=== PATIENT | female | born 1985 | race African-American/Black ===

== ENCOUNTER 2018-09-30 13:09 | Emergency (ER) | payer MEDICAID ==
[~2018-09-30] VITALS: Ht 167.6 cm; Wt 147.9 kg
--- NOTE | 2018-09-30 13:23 | NUR ---
ED Nurse Note: PT WALKED IN TO ER TODAY FROM HOME. AOX4. PT PRESENTS WITH LACERATION TO RIGHT HAND 3RD AND 4TH DIGITS AFTER ACCIDENTALLY CUTTING IT WITH A KNIFE THIS MORNING. NO ACTIVE BLEEDING AT THIS TIME. CAP REFILL <3 SECONDS AND CIRCULATION AND SENSATION INTACT. PT C/O 10/10 PAIN. FULL ROM OF DIGITS.
[2018-09-30 13:24] VITALS: BP 118/64
[2018-09-30] MEDS ORDERED: Tetanus/Diptheria/Pertussis IM ONE (13:30)
--- NOTE | 2018-09-30 14:22 | Diagnostic Imaging Report ---
Indication: Pain Comparison: None Findings: Second third and fourth digits of the right hand imaged in 3 projections. No fracture or malalignment identified. No radiopaque foreign body identified. There is soft tissue injury involving the third digit on the volar side. IMPRESSION: Soft tissue injury. No radiopaque foreign body
[2018-09-30] MEDS ORDERED: Ketorolac 30mg Inj ONE (14:28)
[2018-09-30] MEDS ORDERED: Ketorolac 30mg Inj IM ONE (14:30)
--- NOTE | 2018-09-30 14:50 | Emergency Room Report ---
History of Present Illness General Chief Complaint: Laceration Source: Patient Present Illness HPI 32-year-old female with no significant past medical history here complaining of pain and bleeding in the right third and fourth finger after cutting her fingers with a kitchen knife today. Patient is not up-to-date with her tetanus shot, rating the pain 10 out of 10 and is crying. Has full sensation and is a screaming because she believes that she cannot move her hand and has lost her sensation. Patient keeps insisting on just having her lacerations glued however 1 of the laceration is to the dermis I explained to the patient that he needs to be sutured. Patient denies all other injuries, chest pain, shortness of breath, palpitation, and is currently not taking any blood thinners. Allergies: Coded Allergies: No Known Allergies (Unverified , 09/30/18) Patient History Past Medical History: see triage record Past Surgical History: unable to obtain Pertinent Family History: none Now: No Immunizations: other - tdap given today Reviewed Nursing Documentation: PMH: Agreed; PSxH: Agreed Nursing Documentation-PMH Past Medical History: No Stated History Review of Systems All Other Systems: negative except mentioned in HPI Physical Exam Vital Signs Date Time Temp Pulse Resp B/P (MAP) Pulse Ox O2 Delivery O2 Flow Rate FiO2 09/30/18 13:13 97.9 78 16 111/61 (78) 99 Room Air Sp02 EP Interpretation: reviewed, normal General Appearance: normal inspection, well appearing, no apparent distress, alert Head: normocephalic, atraumatic Eyes: bilateral eye normal inspection, bilateral eye PERRL ENT: normal ENT inspection, hearing grossly normal, normal pharynx Neck: normal inspection, full range of motion, supple Respiratory: normal inspection, lungs clear, normal breath sounds Cardiovascular #1: normal inspection, normal peripheral pulses, regular rate, rhythm, no edema Gastrointestinal: normal inspection, no peritonitis, no bruit Genitourinary: no CVA tenderness Musculoskeletal: other - Deep laceration to the dermis right third finger, facial laceration ring finger both on palmar side Neurologic: normal inspection, oriented x3 Psychiatric: normal inspection, judgement/insight normal Skin: normal color, laceration - Deep laceration to dermis right middle finger controlled on palmar side, and superficial laceration of the right ring finger on palmar side Lymphatic: normal inspection, no adenopathy Procedures Laceration/Wound Repair Laceration/Wound Repair : Consent: Verbal Wound Location: upper extremity Wound's Depth, Shape: superficial Wound Length (cm): 1 Wound Explored: clean Irrigated w/ Saline (ccs): 7 Betadine Prep?: Yes Anesthesia: 1% Lidocaine Wound Debrided: moderate Wound Repaired With: sutures Suture Size/Type: 5:0 Number of Sutures: 4 Sterile Dressing Applied?: No Splint Applied?: No Sling Applied?: Yes Patient Tolerated: Well Complications: None Medical Decision Making PA Attestation All my diagnosis and treatment plans were reviewed ad discussed with my supervising physician Dr. Ruiz Diagnostic Impression: Primary Impression: Laceration of right middle finger Additional Impression: Laceration of right ring finger ER Course 32-year-old female with no significant past medical history here complaining of pain and bleeding in the right third and fourth finger after cutting her fingers with a kitchen knife today. Patient is not up-to-date with her tetanus shot, rating the pain 10 out of 10 and is crying. Has full sensation and is a screaming because she believes that she cannot move her hand and has lost her sensation. Patient keeps insisting on just having her lacerations glued however 1 of the laceration is to the dermis I explained to the patient that he needs to be sutured. Patient denies all other injuries, chest pain, shortness of breath, palpitation, and is currently not taking any blood thinners. Lidocaine was used for numbing, sutures applied after wound was properly cleaned , propper imaging was ordered prior to closure of wound, nonadhesive dressing was applied, sensation was intact, pt was advised to follow up with pcp in 7-10 days for removal of sutures. Ddx considered but are not limited to: Superficial and deep laceration of finger , foreign body, tendon involvement due to laceration Vital signs: are WNL, pt. is afebrile H&PE are most consistent with: Superficial and deep laceration of fingers and right hand without involvement of tendons ORDERS: Finger x-ray, Tdap, Toradol 30 mg IM, naproxen ED INTERVENTIONS: Laceration repair, Toradol 30 DISCHARGE: At this time pt. is stable for d/c to home. Will provide printed patient care instructions, and any necessary prescriptions. Care plan and follow up instructions have been discussed with the patient prior to discharge. Other X-Ray Diagnostic Results Other X-Ray Diagnostic Results : # of Views/Limited Vs Complete: 2 View Indication: Pain EP Interpretation: Yes FRANKO Xray: Interpretation reviewed, by supervising MD Interpretation: no dislocation, no soft tissue swelling Impression: No acute disease Electronically Signed by: deb beal PA-C Last Vital Signs Date Time Temp Pulse Resp B/P (MAP) Pulse Ox O2 Delivery O2 Flow Rate FiO2 09/30/18 13:24 98.1 72 17 118/64 100 Room Air Disposition: HOME, SELF-CARE Condition: Stable Scripts Naproxen* (NAPROXEN*) 500 Mg Tablet 500 MG ORAL TWICE A DAY, #20 TAB Prov: Deb Jung 09/30/18 Patient Instructions: Laceration Care, Adult Additional Instructions: Primary care provider for follow-up stitches to be removed in 7 days Deb Jung Sep 30, 2018 14:50
[2018-09-30] MEDS ORDERED: NAPROXEN500 M2 ORAL (14:51)
[2018-09-30 14:55] VITALS: BP 124/72
--- NOTE | 2018-09-30 14:55 | NUR ---
ED Nurse Note: PT LAYING PEACEFULLY IN BED IN NAD. AOX4. PRESCRIPTION AND DISCHARGE PAPERWORK EXPLAINED TO PT. PT VERBALIZES UNDERSTANDING AND ALL QUESTIONS ANSWERED. PRESCRIPTION AND DISCHARGE PAPERWORK GIVEN TO PT AND ID WRISTBAND REMOVED. PT WALKED OUT OF ER WITH STEADY GAIT AND ALL BELONGINGS.
== END 2018-09-30 14:56 | disposition home or self-care (01) ==
LOC: EMR 14:47
DX: S61.212A Laceration without foreign body of right middle finger without damage to nail, initial encounter (principal); S61.214A Laceration without foreign body of right ring finger without damage to nail, initial encounter; W26.0XXA Contact with knife, initial encounter; Y92.9 Unspecified place or not applicable; Z23 Encounter for immunization
CPT/HCPCS: 12001; 73140; 90471; 90715; 96372; 99283; J1885; Z7502